=== PATIENT | male | born 1985 | race Caucasian/White ===

== ENCOUNTER 2023-02-22 12:05 | Outpatient (CLI) | payer OTHER ==
[2023-02-22] MEDS ORDERED: Glucagon 1 MG/ML KIT ONE (13:34)
[2023-02-22] MEDS ORDERED: Magnevist 469MG/ML 20 ML VIAL ONE (13:48)
== END 2023-02-22 12:06 | disposition home or self-care (01) ==
LOC: MRI 12:05
PROVIDERS: ATTEND Physician Assistant Medical
DX: K56.609 Unspecified intestinal obstruction, unspecified as to partial versus complete obstruction (principal); M62.08 Separation of muscle (nontraumatic), other site; R10.33 Periumbilical pain; R10.13 Epigastric pain
CPT/HCPCS: 74183; A9579; J1611